=== PATIENT | male | born 1985 | race Caucasian/White ===

== ENCOUNTER 2020-07-24 15:27 | Emergency (ER) | payer SELFPAY ==
[2020-07-24] MEDS ORDERED: Lidocaine 1% with EPINEPHrine 1:100,000 20 ML MDV INJECT ONE (15:41)
[2020-07-24] MEDS: Diphtheria,Pertussis(Acell),Tetanus Vaccine 0.5 ML Syringe IM ONE (16:01)
[2020-07-24] MEDS ORDERED: Bacitracin/Neomycin/Polymyxin B Oint 0.9 GM U/D Packet ONE (16:23)
--- NOTE | 2020-07-24 16:48 | EDM.PDOC ---
ED HPI GENERAL MEDICAL PROBLEM - General Chief Complaint: General Stated Complaint: L Thumb Lac Time Seen by Provider: 07/24/20 15:55 Source of Information: Reports: Patient History Limitations: Reports: No Limitations - History of Present Illness INITIAL COMMENTS - FREE TEXT/NARRATIVE: Leon is a 35 yo male who presents to the ED with c/o laceration to his left thumb. Reports he got hand wedged between winch. Reports he is able to move his thumb without difficulty. Pain is 4/10. Bleeding is well controlled. No other complaints. Onset: Today, Sudden Onset Date: 07/24/20 Onset Time: 14:30 Duration: Constant Location: Reports: Other (left thumb) Improves with: Reports: None Worsens with: Reports: None Associated Symptoms: Reports: No Other Symptoms - Related Data Allergies Allergy/AdvReac Type Severity Reaction Status Date / Time No Known Allergies Allergy Verified 07/24/20 16:52 Home Meds: Home Meds . [No Known Home Meds] 07/24/20 [History] Past Medical History - Past Surgical History GI Surgical History: Reports: Appendectomy Social & Family History - Tobacco Use Tobacco Use Status *Q: Former Tobacco User Used Tobacco, but Quit: Yes Month/Year Tobacco Last Used: states "years ago" - Caffeine Use Caffeine Use: Reports: Soda - Recreational Drug Use Recreational Drug Use: No ED ROS GENERAL - Review of Systems Review Of Systems: Comprehensive ROS is negative, except as noted in HPI. ED EXAM, GENERAL - Physical Exam Exam: See Below Exam Limited By: No Limitations General Appearance: Alert, WD/WN, No Apparent Distress, Anxious Peripheral Pulses: 2+: Radial (L), Radial (R) Extremities: Normal Range of Motion, Normal Capillary Refill Neurological: Alert, Oriented, CN II-XII Intact, Normal Cognition, Normal Gait, Normal Reflexes, No Motor/Sensory Deficits Psychiatric: Anxious Skin Exam: Wound/Incision (2.5 cm laceration to proximal aspect of left thumb) ED GENERAL MEDICAL PROCEDURES - Laceration/Wound Repair Left Digit - 1st (Thumb) Lac/wound length in cm: 2.5 Appearance: Subcutaneous, Irregular, Clean Distal NVT: Neuro & Vascular Intact, No Tendon Injury Anesthetic Type: Local Local Anesthesia - Lidocaine (Xylocaine): 1% Plain Local Anesthetic Volume: 2cc Skin Prep: Chlorhexidine (Hibiciens), Providone-Iodine (Betadine) Saline irrigation (cc's): 30 Exploration/Debridement/Repair: Wound Explored, No Foreign Material Found Closed with: Sutures Suture Size: 5-0 # of Sutures: 5 Suture Type: Nylon, Interrupted, Simple Sterile Dressing Applied: Nurse Tetanus Status Addressed: Yes Complications: No Course - Vital Signs Last Recorded V/S: Last Vital Signs Temp 97.8 F 07/24/20 15:34 Pulse 105 H 07/24/20 15:34 Resp 20 07/24/20 15:34 BP 173/104 H 07/24/20 15:34 Pulse Ox 98 07/24/20 15:34 - Orders/Labs/Meds Meds: Medications Discontinued Medications Generic Name Dose Route Start Last Admin Trade Name Freq PRN Reason Stop Dose Admin Diphtheria/Tetanus/Acell Pertussis 0.5 ml 07/24/20 15:28 07/24/20 16:01 Adacel IM 07/24/20 15:29 0.5 ml .ONCE ONE Administration Lidocaine HCl 5 ml 07/24/20 15:42 07/24/20 16:01 Xylocaine-Mpf 1% INJECT 07/24/20 15:43 5 ml ONETIME ONE Administration Lidocaine/Epinephrine 20 ml 07/24/20 15:41 Xylocaine 1% With Epinephrine 1:100,000 INJECT 07/24/20 15:42 ONETIME ONE Neomycin/Polymyxin/Bacitracin Confirm 07/24/20 16:23 Triple Antibiotic Oint Administered 07/24/20 16:24 Dose 1 each .ROUTE .STK-MED ONE Departure - Departure Time of Disposition: 16:49 Disposition: Home, Self-Care 01 Condition: Good Clinical Impression: Laceration of thumb without complication Qualifiers: Encounter type: initial encounter Laterality: left Qualified Code(s): S61.012A - Laceration without foreign body of left thumb without damage to nail, initial encounter - Discharge Information *PRESCRIPTION DRUG MONITORING PROGRAM REVIEWED*: Not Applicable *COPY OF PRESCRIPTION DRUG MONITORING REPORT IN PATIENT JANELLE: Not Applicable Instructions: Laceration Care, Adult, [id number] Referrals: PCP,None [Primary Care Provider] - Forms: ED Department Discharge Additional Instructions: - Try to avoid bending thumb as much as possible - Keep area clean and dry - Neosporin to area daily - Keep covered when working outdoors etc. - Tylenol or ibuprofen as needed for discomfort - Ice affected area as needed for swelling - Monitor for s/s of infection (redness, drainage, increased pain/swelling) - Follow up 14 days for sutures removal Sepsis Event Note (ED) - Evaluation Sepsis Screening Result: No Definite Risk - Problem List & Annotations (1) Laceration of thumb without complication SNOMED Code(s): 160952131 Code(s): S61.019A - LACERATION W/O FOREIGN BODY OF THMB W/O DAMAGE TO NAIL, INIT Status: Acute Qualifiers: Encounter type: initial encounter Laterality: left Qualified Code(s): S61.012A - Laceration without foreign body of left thumb without damage to nail, initial encounter - Assessment/Plan Assessment:: Laceration of thumb Plan: As above.
== END 2020-07-24 16:57 | disposition home or self-care (01) ==
LOC: CC.ED 15:27
DX: S61.012A Laceration without foreign body of left thumb without damage to nail, initial encounter (principal); Z23 Encounter for immunization; Z87.891 Personal history of nicotine dependence; W23.0XXA Caught, crushed, jammed, or pinched between moving objects, initial encounter
CPT/HCPCS: 12001; 73130-LT; 90471; 90715; 99283-25; J2001